=== PATIENT | female | born 1990 | race Caucasian/White ===

== ENCOUNTER 2017-06-04 18:53 | Emergency (ER) | payer SELFPAY ==
[~2017-06-04] VITALS: Ht 167.6 cm; Wt 119.0 kg
[2017-06-04 19:12] VITALS: BP 102/67
--- NOTE | 2017-06-04 19:22 | NUR ---
PT TAKEN TO XRAY FROM THE LOBBY
--- NOTE | 2017-06-04 19:29 | NUR ---
PT RETURN FROM [facility] TO [facility]
--- NOTE | 2017-06-04 19:31 | NUR ---
PT TAKEN TO BED 12
--- NOTE | 2017-06-04 19:35 | NUR ---
26/F CAME IN W C/O 12/10 PAIN TO RT THUMB S/P CLOSING CAR DOOR ON HER THUMB YESTERDAY. RT THUMB NOTED WITH ECCHYMOSIS AND MILD REDNESS AND EDEMA, FULL ROM OF FINGERS WITH PAIN TO RT THUMB, +PMSC, DENIES NUMBNESS/TINGLING. DENIES PMH/RX, NO OTC TODAY.
[2017-06-04 20:29] VITALS: BP 116/65
== END 2017-06-04 20:27 | disposition home or self-care (01) ==
LOC: MED 18:53
DX: S63.601A Unspecified sprain of right thumb, initial encounter (principal); X58.XXXA Exposure to other specified factors, initial encounter; Y93.89 Activity, other specified; Y92.89 Other specified places as the place of occurrence of the external cause; Y99.8 Other external cause status
CPT/HCPCS: 73140; 81025; 99284

== ENCOUNTER 2018-09-07 20:59 | Emergency (ER) | payer SELFPAY ==
[~2018-09-07] VITALS: Ht 167.6 cm; Wt 107.5 kg
[2018-09-07 21:04] VITALS: BP 142/69
--- NOTE | 2018-09-07 22:18 | NUR ---
Patient ambulated to bed 3. RN evaluating patient at bedside.
--- NOTE | 2018-09-07 22:26 | NUR ---
C/O WORSENING RASH ACROSS BREASTS, X1 WEEK, REPORTS ITCHINESS, DENIES PAIN. DENIES ANY NEW BRA, CLOTHES OR ALLERGENS. DENIES N/V/D; SKIN IS PINK/WARM/DRY; AAOX4 WITH EVEN AND STEADY GAIT; LUNGS CLEAR BL; HR EVEN AND REGULAR; PT DENIES ANY FEVER, CP, SOB, OR COUGH AT THIS TIME; PATIENT STATES PAIN OF 0/10 AT THIS TIME; VSS; PATIENT POSITIONED FOR COMFORT; HOB ELEVATED; BEDRAILS UP X2; BED DOWN. ER MD MADE AWARE OF PT STATUS.
--- NOTE | 2018-09-07 22:52 | NUR ---
Dr. Coreas evaluating patient at bedside.
[2018-09-07 23:14] VITALS: BP 138/65
--- NOTE | 2018-09-07 23:15 | NUR ---
Patient discharged with v/s stable. Written and verbal after care instructions given and explained. Patient alert, oriented and verbalized understanding of instructions. Ambulatory with steady gait. All questions addressed prior to discharge. ID band removed. Patient advised to follow up with PMD. Rx of LOTRIUM given. Patient educated on indication of medication including possible reaction and side effects. Opportunity to ask questions provided and answered.
== END 2018-09-07 23:15 | disposition home or self-care (01) ==
LOC: MED 20:59
DX: B35.8 Other dermatophytoses (principal)
CPT/HCPCS: 99282